=== PATIENT | female | born 1990 | race African-American/Black ===

== ENCOUNTER 2017-06-07 23:40 | Emergency (ER) | payer SELFPAY ==
[~2017-06-07] VITALS: Ht 162.6 cm; Wt 122.0 kg
[2017-06-08 01:29] VITALS: BP 125/58
== END 2017-06-08 02:45 | disposition left against medical advice (07) ==
LOC: ER 23:40
DX: R51 Headache (principal); Z53.21 Procedure and treatment not carried out due to patient leaving prior to being seen by health care provider